=== PATIENT | female | born 1990 | race Caucasian/White ===

== ENCOUNTER → 2020-08-11 | Outpatient (CLI) | payer BC, OTHER ==
[~2020-08-11] MED LIST: ALBUTEROL2.5 MG/3 M INH; ALPRAZOLAM; ATIVAN0.5 MG PO; DEXAMETHASONE 44 M1 PO; DEXILANT60 MG PO; HYDROCODON-ACE1 EAC7 PO; IRON325 PO; MICROGESTIN1 EAC1 PO; NORCO 5-325 TA1 EACH PO; PREDNISONE 20 M20 MG PO; PROZAC; SEASONALE PO; SEASONALE1 EACH PO; SINGULAIR 10 MG10 M1 PO; TAZTIA XT120 M1 PO; WELLBUTRIN SR150 MG PO; WELLBUTRIN XL300 MG PO; XANAX 0.25 MG0.25 MG PO; ZOLOFT50 MG PO
== END ==
LOC: SJCVC 15:10 → SJCVCIMAG 15:10
PROVIDERS: ATTEND Internal Medicine Cardiovascular Disease
DX: R00.2 Palpitations (principal); I47.1 Supraventricular tachycardia; Z86.711 Personal history of pulmonary embolism